=== PATIENT | male | born 1930 | race Caucasian/White ===

== ENCOUNTER 2018-11-23 13:30 | Emergency (ER) | payer MEDICARE, MEDICAID ==
[~2018-11-23] VITALS: Ht 180.3 cm; Wt 86.6 kg
[2018-11-23 13:39] VITALS: BP 165/80
[2018-11-23] MEDS ORDERED: PHENYLEPHRINE 0.5% NASAL SPRAY 15 ML BOTTLE NS ONE (13:47)
[2018-11-23] MEDS ORDERED: PHENYLEPHRINE HCL NASAL SPRAY 15 ML BOTTLE NS ONE (14:00)
== END 2018-11-23 14:59 | disposition home or self-care (01) ==
LOC: ER 13:33
DX: R04.0 Epistaxis (principal); I10 Essential (primary) hypertension; I48.91 Unspecified atrial fibrillation
CPT/HCPCS: 30901; 99284; A4606